=== PATIENT | female | born 1970 ===

== ENCOUNTER 2018-12-05 09:49 | Emergency (ER) | payer SELFPAY ==
[2018-12-05 10:00] VITALS: BMI 26.2
[2018-12-05 10:05] VITALS: BP 135/86; PULSE 81; RESP 20; TEMP 98.6; O2SAT 99
--- NOTE | 2018-12-05 10:31 | C.PDOC ---
History Of Present Illness 48 year old female presents to the ED for evaluation swelling and itchiness scattered over her body, including her legs and hands which began around 15 days ago. She is also complaining of left-sided facial swelling, around her jaw, which began 4 days ago. Patient states the scattered swelling is itchy with some mild erythema. She denies past medical history, known allergies, fever, chills, or dental complaints at this time. Time Seen by Provider: 12/05/18 10:10 Chief Complaint (Nursing): Abnormal Skin Integrity History Per: Patient History/Exam Limitations: no limitations Onset/Duration Of Symptoms: Days Current Symptoms Are (Timing): Still Present Location Of Injury: Left: Face (jaw ) Quality Of Symptoms: Itching, Swollen Additional History Per: Patient Past Medical History Reviewed: Historical Data, Nursing Documentation, Vital Signs Vital Signs: Last Vital Signs Temp 98.6 F 12/05/18 09:59 Pulse 81 12/05/18 09:59 Resp 20 12/05/18 09:59 BP 135/86 12/05/18 09:59 Pulse Ox 99 12/05/18 09:59 - Medical History PMH: No Chronic Diseases Surgical History: No Surg Hx Family History: States: Unknown Family Hx - Social History Hx Alcohol Use: No Hx Substance Use: No - Immunization History Hx Tetanus Toxoid Vaccination: No Hx Influenza Vaccination: No Hx Pneumococcal Vaccination: No Review Of Systems Constitutional: Negative for: Fever, Chills ENT: Positive for: Other (left jaw swelling ) Skin: Positive for: Other (scattered itching and swelling over body ) Physical Exam - Physical Exam Appears: Non-toxic, No Acute Distress Skin: Warm, Dry, Other (scattered erythema and swelling to legs and hands. no papules, no vesicles ) Head: Atraumatic, Other (swelling to left jaw ) Eye(s): bilateral: Normal Inspection Ear(s): Bilateral: Normal Nose: Normal, No Discharge Oral Mucosa: Moist Tongue: Normal Appearing, No Swelling Lips: Normal Appearing, No Swelling Teeth: Normal Dentition (on the area of left jaw ), No Caries, No Tender To Palpation, No Loose Gingiva: Normal Appearing, No Abscess Throat: Normal, No Erythema, No Exudate, No Drooling Neck: Supple Chest: Symmetrical, No Deformity, No Tenderness Cardiovascular: Rhythm Regular, No Murmur Respiratory: Normal Breath Sounds, No Rales, No Rhonchi, No Wheezing Extremity: Normal ROM, Capillary Refill (less than 2 seconds ) Neurological/Psych: Oriented x3, Normal Speech, Normal Cognition ED Course And Treatment O2 Sat by Pulse Oximetry: 99 (on RA) Pulse Ox Interpretation: Normal Medical Decision Making Medical Decision Making: Impression: left jaw swelling, possibly dental abscess Plan: * Bendaryl PO * Penicillin VK PO * reassess and disposition Progress: Benadryl PO given for itchiness. Penicillin VK PO given for possible dental abscess. On reassessment, patient is resting comfortably, showing no signs of respiratory distress and is stable for discharge. Patient will be prescribed Benadryl, Penicillin VK and a Hydrocortisone cream for her rash, and advised to follow up with dental care (Dr. Perez) within 1-2 days for further evaluation. Patient advised to return to the ED immediately if symptoms persist or worsen. Disposition - Disposition Referrals: Rakel Perez DMD [Staff Provider] - Disposition: HOME/ ROUTINE Disposition Time: 10:47 Condition: GOOD Additional Instructions: Call the dentist to make an appointment as soon as possible. Prescriptions: DiphenhydrAMINE [Benadryl] 25 mg PO Q6 #20 cap Hydrocortisone 1% Oint [Cortizone 1% Oint] 30 applic TOP BID #1 tube Penicillin VK [Penicillin VK Tab] 500 mg PO BID #20 tab Instructions: Skin Rash, Tooth Abscess (DC) Forms: [employer] (Montenegrin) - Clinical Impression Clinical Impression: Tooth abscess, Skin rash - Scribe Statement The provider has reviewed the documentation as recorded by the Scribe (Mabel Olson) All medical record entries made by the Scribe were at my direction and personally dictated by me. I have reviewed the chart and agree that the record accurately reflects my personal performance of the history, physical exam, medical decision making, and the department course for this patient. I have also personally directed, reviewed, and agree with the discharge instructions and disposition.
== END 2018-12-05 10:51 | disposition home or self-care (01) ==
LOC: C.ER 09:49
DX: K04.7 Periapical abscess without sinus (principal); R21 Rash and other nonspecific skin eruption